=== PATIENT | female | born 1965 | race Caucasian/White ===

== ENCOUNTER → 2017-07-05 | Outpatient (CLI) | payer MEDICARE, BC ==
--- NOTE | 2017-07-05 10:20 | RAD ---
Exam performed:3 views left shoulder Indication:Left shoulder pain for 3 days, injury at the gym Date of service:07/05/17. Comparison:None available Findings : AP radiographs of the shoulder in internal and external rotation as well as a Y-view reveal the osseous structures to be intact and well aligned. The joint space is well-preserved. The articular margins are smooth. The visualized left lung is clear. Previous median sternotomy. Impression: No acute abnormality seen in the left shoulder.
== END | disposition home or self-care (01) ==
LOC: DXRADRC 10:05
PROVIDERS: ATTEND Physician Assistant Medical
DX: M25.512 Pain in left shoulder (principal); Z98.890 Other specified postprocedural states
CPT/HCPCS: 73030

== ENCOUNTER → 2018-09-19 | Outpatient (CLI) | payer MEDICARE, OTHER ==
--- NOTE | 2018-09-19 14:47 | CARD ---
MR#: [id number] Date of Study: 09/19/2018 Ordering Physician: FABIAN PATEL, Referring Physician: FABIAN PATEL, Tech: Mechelle Hays RDCS APPROVED REPORT EXAM: Two-dimensional and M-mode echocardiogram with Doppler and color Doppler. Other Information Quality : Good INDICATION Aortic Valve Disease Surgery/Intervention Status/Post Aortic Valve Replacement: Mechanical Type: Medtronic Date: 2010 2D DIMENSIONS RVDd2.7 (2.9-3.5cm)Left Atrium(2D)2.6 (1.6-4.0cm) IVSd1.3 (0.7-1.1cm)Aortic Root(2D)2.8 (2.0-3.7cm) LVDd3.8 (3.9-5.9cm)LVOT Diameter2.0 (1.8-2.4cm) PWd1.2 (0.7-1.1cm)LVDs2.2 (2.5-4.0cm) FS (%) 30.0 %SV45.2 ml LVEF(%)60.0 (>50%) Aortic Valve AoV Peak Ruperto.282.1cm/sAoV VTI48.5cm AO Peak GR.31.8mmHgLVOT Peak Ruperto.131.5cm/s LVOT VTI 21.16cmAO Mean GR.19mmHg CLAU (VMAX)1.52ur5JXB (VTI)1.40cm2 AI P 1/2 [id number] Mitral Valve MV E Hzsorcxx60.0cm/sMV DECEL CEUO337gk MV A Afvapwzg12.1cm/sE/A Ratio1.1 Tricuspid Valve TR P. Zlndjolr056qm/sRAP VLCJQQZD3lwWf TR Peak Gr.59sdPyLLBA07mzNt Pulmonary Vein S1 Pxurlarz63.2cm/sD2 Stfmanip04.2cm/s LEFT VENTRICLE The left ventricle is normal size. There is mild concentric left ventricular hypertrophy. The left ve ntricular systolic function is normal and the ejection fraction is within normal range. The Ejection Fraction is 55-60%. There is normal LV segmental wall motion. Septal motion consistent with postooper ative state. The left ventricular diastolic function and filling is normal for age. RIGHT VENTRICLE The right ventricle is normal size. The right ventricular systolic function is normal. ATRIA The left atrium size is normal. The right atrium size is normal. The interatrial septum is intact wit h no evidence for an atrial septal defect or patent foramen ovale as noted on 2-D or Doppler imaging. AORTIC VALVE The aortic valve is not well visualized. Doppler and Color Flow revealed mild aortic regurgitation. C alculated aortic valve area is 1.4 cm2 with maximum pressure gradient of 32 mmHg and mean pressure gr adient of 19 mmHg. There is a mechanical aortic valve prosthesis. The prosthetic aortic valve appears well seated. MITRAL VALVE The mitral valve is normal in structure and function. There is no evidence of mitral valve prolapse. There is no mitral valve stenosis. Doppler and Color Flow revealed no mitral valve regurgitation note d. TRICUSPID VALVE The tricuspid valve is normal in structure and function. Doppler and Color Flow revealed mild TR. RVS P 20 mm Hg. There is no tricuspid valve prolapse or vegetation. There is no tricuspid valve stenosis. PULMONIC VALVE Doppler and Color Flow revealed no pulmonic valvular regurgitation. There is no pulmonic valvular dena nosis. GREAT VESSELS The aortic root is normal in size. The ascending aorta is normal in size. The IVC was not visualized. PERICARDIAL EFFUSION There is no evidence of significant pericardial effusion. Critical Notification Critical Value: No <Conclusion> The left ventricular systolic function is normal and the ejection fraction is within normal range. Th e Ejection Fraction is 55-60%. There is normal LV segmental wall motion. Septal motion consistent with postooperative state. There is a mechanical aortic valve prosthesis. The prosthetic aortic valve appears well seated. Calculated aortic valve area is 1.4 cm2 with maximum pressure gradient of 32 mmHg and mean pressure g radient of 19 mmHg. Signed by : Fabian Patel, Electronically Approved : 09/19/2018 14:46:18
== END | disposition home or self-care (01) ==
LOC: ECHO 13:52
PROVIDERS: ATTEND Internal Medicine Cardiovascular Disease
DX: I35.8 Other nonrheumatic aortic valve disorders (principal); Z95.2 Presence of prosthetic heart valve
CPT/HCPCS: 93306

== ENCOUNTER → 2019-01-29 | Outpatient (CLI) | payer MEDICARE, OTHER ==
--- NOTE | 2019-01-29 10:23 | RAD ---
AP and Lateral Views of the Chest 01/29/2019 9:59 AM Indication: pneumonia Comparison: CT of the chest October 01, 2011. Findings: There is no focal consolidation or infiltrate identified. Prior median sternotomy and valve repair are noted. Heart size is normal. There is no evidence of pneumothorax or pleural effusion. No acute osseous abnormalities are identified. Impression: No evidence of acute cardiopulmonary process. Electronically signed by: Sj Little MD (01/29/2019 10:20 AM) [id number]
== END | disposition home or self-care (01) ==
LOC: PMG 09:45
PROVIDERS: ATTEND Physician Assistant Medical
DX: J18.9 Pneumonia, unspecified organism (principal)
CPT/HCPCS: 71046

== ENCOUNTER → 2019-02-16 | Outpatient (CLI) | payer MEDICARE, OTHER ==
--- NOTE | 2019-02-16 16:40 | RAD ---
Left RIBS, 2 views, 02/16/2019: HISTORY: Left rib pain No rib fracture is identified. There is no evidence of underlying pneumothorax, pleural fluid or infiltrate. A cardiac valvular prosthesis is in place. IMPRESSION: No acute left rib abnormality is detected. Electronically signed by: Osmany Morales MD (02/16/2019 4:37 PM) [facility]
== END | disposition home or self-care (01) ==
LOC: PMG 15:18
PROVIDERS: ATTEND Registered Nurse
DX: R07.81 Pleurodynia (principal); Z95.2 Presence of prosthetic heart valve
CPT/HCPCS: 71100

== ENCOUNTER → 2019-02-20 | Outpatient (CLI) | payer MEDICARE, OTHER ==
--- NOTE | 2019-02-20 16:01 | RAD ---
Examination: BREAST LEFT History: order stated left side chest wall near breast when i felt it in breast 4 7cm fn
so i changed it to breast
Comparison/Correlation: None Findings: Ultrasound imaging of the left breast was performed. Imaging was performed from the 4:00 to 5:00 region 7 cm from the nipple. There is no mass or cyst. No edema or other suspicious finding. Impression: No suspicious finding. If a palpable breast abnormality is a concern, then mammographic correlation would be recommended. Electronically signed by: Claudio Brooks MD (02/20/2019 3:58 PM) [facility]
== END | disposition home or self-care (01) ==
LOC: US 11:19
PROVIDERS: ATTEND Physician Assistant Medical
DX: R22.2 Localized swelling, mass and lump, trunk (principal)
CPT/HCPCS: 76641

== ENCOUNTER → 2019-03-02 | Outpatient (CLI) | payer MEDICARE, OTHER ==
--- NOTE | 2019-03-02 17:16 | RAD ---
DATE: 03/02/2019 EXAM: MAMMO RIC DIAG BILAT HISTORY: Left breast lump COMPARISON: 11/27/2015 This study was interpreted with the benefit of Computerized Aided Detection (CAD). Breast Density: SCATTERED The breast parenchyma shows scattered fibroglandular densities. Breast parenchyma level B. FINDINGS: 2-D and 3-D tomosynthesis imaging was performed in CC and MLO projections. No new or enlarging breast densities are seen. Minimal benign type calcifications are noted. No suspicious microcalcifications have developed. IMPRESSION: Stable mammograms without evidence of malignancy. If there is a high clinical suspicion of a chest wall abnormality, CT scanning may be useful for further evaluation. BI-RADS CATEGORY: 2 BENIGN FINDING(S) RECOMMENDED FOLLOW-UP: 12M 12 MONTH FOLLOW-UP PQRS compliance statement: Patient information was entered into a reminder system with a target due date for the next mammogram. Mammography is a sensitive method for finding small breast cancers, but it does not detect them all and is not a substitute for careful clinical examination. A negative mammogram does not negate a clinically suspicious finding and should not result in delay in biopsying a clinically suspicious abnormality. "Our facility is accredited by the [employer] Mammography Program."
== END | disposition home or self-care (01) ==
LOC: MAMMO 10:13
PROVIDERS: ATTEND Registered Nurse
DX: R22.2 Localized swelling, mass and lump, trunk (principal)
CPT/HCPCS: 77066; G0279; 77062

== ENCOUNTER → 2019-10-26 | Outpatient (CLI) | payer MEDICARE, OTHER ==
[~2019-10-26] MED LIST: IOHEXOL 350 MG/ML 100 ML VIAL. IV ONE
--- NOTE | 2019-10-26 10:53 | CARD ---
MR#: [id number] Date of Study: 10/26/2019 Ordering Physician: FABIAN PATEL, Referring Physician: FABIAN PATEL, Tech: Mechelle Hays RDCS APPROVED REPORT EXAM: Two-dimensional and M-mode echocardiogram with Doppler and color Doppler. Other Information Quality : Good Technically limited study due to aortic valve prosthesis. INDICATION Aortic Valve Disease Surgery/Intervention Status/Post Aortic Valve Replacement: Mechanical Type: Medtronic Date: 10/2011 2D DIMENSIONS RVDd2.3 (2.9-3.5cm)Left Atrium(2D)2.9 (1.6-4.0cm) IVSd1.0 (0.7-1.1cm)Aortic Root(2D)2.7 (2.0-3.7cm) LVDd4.1 (3.9-5.9cm)LVOT Diameter2.0 (1.8-2.4cm) PWd1.1 (0.7-1.1cm)LVDs2.8 (2.5-4.0cm) FS (%) 31.3 %SV44.2 ml LVEF(%)59.6 (>50%) Aortic Valve AoV Peak Ruperto.259.1cm/sAoV VTI50.8cm AO Peak GR.26.9mmHgLVOT Peak Ruperto.80.5cm/s LVOT VTI 17.20cmAO Mean GR.16mmHg CLAU (VMAX)0.49ar4NXU (VTI)1.08cm2 Mitral Valve MV E Slqcnrzq95.3cm/sMV DECEL KKTJ007mu MV A Mqeqomln95.8cm/sE/A Ratio1.1 Tricuspid Valve TR P. Zyvraxvf035bp/sRAP MMGJMBCZ6weRp TR Peak Gr.22ejKpTZAG48niXn Pulmonary Vein S1 Qiinqjts80.1cm/sD2 Gqndoknh15.8cm/s LEFT VENTRICLE The left ventricle is normal size. There is normal left ventricular wall thickness. The left ventricu lar systolic function is normal and the ejection fraction is within normal range. The Ejection Fracti on is 55-60%. Septal motion suggestive of prior sternotomy. Otherwise, there is normal LV segmental w all motion. The left ventricular diastolic function and filling is normal for age. RIGHT VENTRICLE The right ventricle is normal size. The right ventricular systolic function is normal. ATRIA The left atrium size is normal. The right atrium size is normal. The interatrial septum is intact wit h no evidence for an atrial septal defect or patent foramen ovale as noted on 2-D or Doppler imaging. AORTIC VALVE The aortic valve is not well visualized. Doppler and Color Flow revealed trace to mild aortic regurgi tation. Calculated aortic valve area is 1.1 cm2 with maximum pressure gradient of 27 mmHg and mean pr essure gradient of 16 mmHg. There is a central disk (Medtronic-Carpio type) mechanical aortic valve pro sthesis. MITRAL VALVE The mitral valve is calcified but opens well. There is no evidence of mitral valve prolapse. There is no mitral valve stenosis. Doppler and Color-flow revealed trace mitral regurgitation. TRICUSPID VALVE The tricuspid valve is normal in structure and function. Doppler and Color Flow revealed mild tricusp id regurgitation. The PA pressure was estimated at 27 mmHg. There is no tricuspid valve stenosis. PULMONIC VALVE The pulmonic valve is not well visualized. Doppler and Color Flow revealed trace to mild pulmonic tom vular regurgitation. There is no pulmonic valvular stenosis. GREAT VESSELS The aortic root is normal in size. The ascending aorta is normal in size. The IVC was not visualized. PERICARDIAL EFFUSION There is no evidence of significant pericardial effusion. Critical Notification Critical Value: No <Conclusion> The left ventricular systolic function is normal and the ejection fraction is within normal range. Th e Ejection Fraction is 55-60%. Septal motion suggestive of prior sternotomy. Otherwise, there is normal LV segmental wall motion. There is a mechanical aortic valve prosthesis. Calculated aortic valve area is 1.1 cm2 with maximum pressure gradient of 27 mmHg and mean pressure gradient of 16 mmHg. Signed by : Fabian Patel, Electronically Approved : 10/26/2019 10:52:33
--- NOTE | 2019-10-26 17:33 | RAD ---
EXAM: CT ANGIOGRAM CHEST WITH IV CONTRAST CLINICAL HISTORY: Aortic aneurysm. COMPARISON: None. TECHNIQUE: CT of the chest following the administration of intravenous contrast. Axial, coronal and sagittal reformatted images were generated. ---PQRS compliance statement - One or more of the following individualized dose reduction techniques were utilized for this study: 1. Automated exposure control 2. Adjustment of the mA and/or kV according to patient size 3. Use of iterative reconstruction technique--- FINDINGS: CT angiogram: Changes of aortic valve replacement are seen. Ascending aorta measures up to 3 cm at the level of the right pulmonary artery. The aortic arch measures 2.8 cm in diameter. The proximal descending aorta, just beyond the origin of the left subclavian artery measures 3.4 cm. The descending aorta at the left pulmonary artery measures 2.3 cm. At the diaphragmatic hiatus the aorta measures 2.3 cm. No evidence for aortic dissection. No mediastinal hematoma or evidence for rupture. CHEST: Heart is not enlarged. No pericardial effusion. No pleural effusion or pneumothorax. Small hiatal hernia. No mediastinal or hilar lymphadenopathy. No axillary lymphadenopathy. No pleural effusion or pneumothorax. No lobar consolidation. Minimal dependent opacities in lower lobes likely scarring/atelectasis. Visualized Upper abdomen: Heterogeneous appearance of the spleen likely from arterial phase of contrast. Cholecystectomy clips are seen. Bones: Degenerative changes of spine are seen. Sternotomy wires are noted. 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 Measurements as above. Electronically signed by: Glen Carrillo MD (10/26/2019 5:30 PM) [id number]
== END | disposition home or self-care (01) ==
LOC: ECHO 08:44
PROVIDERS: ATTEND Internal Medicine Cardiovascular Disease
DX: I08.8 Other rheumatic multiple valve diseases (principal); I71.9 Aortic aneurysm of unspecified site, without rupture; K44.9 Diaphragmatic hernia without obstruction or gangrene; Z90.49 Acquired absence of other specified parts of digestive tract; Z95.2 Presence of prosthetic heart valve
CPT/HCPCS: 71275; 93306; Q9967

== ENCOUNTER → 2020-06-30 | Outpatient (CLI) | payer MEDICARE, OTHER ==
--- NOTE | 2020-06-30 15:26 | RAD ---
EXAM: BILATERAL DIGITAL 3D SCREENING MAMMOGRAPHY. HISTORY: Routine mammographic screening. TECHNIQUE: Bilateral digital 3D and tomographic images were obtained in CC and MLO projections. Computer-aided detection was applied. COMPARISON: 11/27/2015. COMPOSITION: B. There are scattered areas of fibroglandular density. FINDINGS: There are no suspicious masses, microcalcifications or architectural distortion. The parenchymal pattern is stable. Scattered calcifications are benign. BI-RADS CATEGORY 2: Benign. RECOMMENDATION: 1. Routine screening mammography in one year. If mammography demonstrates dense breast tissue (heterogenously dense or extremely dense, category C or D), which could hide abnormalities, and if other risk factors for breast cancer have been identified, supplemental screening tests that may be suggested by the ordering physician may be of benefit. Dense breast tissue, in and of itself, is a relatively common condition. Therefore, this information is not provided to cause undue concern, but rather to raise awareness and to promote discussion with the referring physician regarding the presence of other risk factors, in addition to dense breast tissue. The results of this mammography examination is provided to the patient and referring physician. The patient should contact their referring physician if any questions or concerns exist regarding this report. PQRS compliance statement - Patient information was entered into a reminder system with a target due date for the next mammogram. "Our facility is accredited by the [employer] Mammography [employer]." Electronically signed by: Gabby Suazo MD (06/30/2020 3:22 PM) [id number]
== END | disposition home or self-care (01) ==
LOC: MAMMO 09:29
PROVIDERS: ATTEND Physician Assistant Medical
DX: Z12.31 Encounter for screening mammogram for malignant neoplasm of breast (principal); N64.89 Other specified disorders of breast
CPT/HCPCS: 77063; 77067

== ENCOUNTER → 2021-05-08 | Outpatient (CLI) | payer MEDICARE, OTHER ==
--- NOTE | 2021-05-08 13:45 | RAD ---
EXAM: XR CHEST 2V 05/08/2021 11:17 AM CLINICAL INDICATION: Cough, second hand smoke COMPARISON: None available. TECHNIQUE: PA and lateral views of the chest FINDINGS: There are changes of median sternotomy and a prosthetic heart valve. The heart is normal in size normal. Lungs are well-expanded and clear. No consolidation, pleural effusion, or pneumothora x. Pulmonary vascularity is normal. The thoracic skeleton is intact. IMPRESSION: No acute cardiopulmonary abnormality. Electronically signed by: Gia Cleveland MD (05/08/2021 1:43 PM) [id number]
== END ==
LOC: RAD 11:09
PROVIDERS: ATTEND Physician Assistant Medical
DX: R05 Cough (principal); Z95.2 Presence of prosthetic heart valve
CPT/HCPCS: 71046

== ENCOUNTER → 2021-07-03 | Outpatient (CLI) | payer MEDICARE, OTHER ==
--- NOTE | 2021-07-03 14:22 | RAD ---
History: Routine digital 3-D screening mammography PROCEDURE: [Routine 3-D CC and MLO views of both breasts are obtained.] The images were also evalua jaren with computer-aided detection and the CAD results were analyzed. Previous: Bilateral screening mammogram from 06/30/2020. FINDINGS: There are scattered fibroglandular densities (density level B).There are no suspicious masses, suspic ious microcalcifications or areas of architectural distortion. Stable occasional calcifications seen. IMPRESSION: Benign mammogram. Routine annual screening mammogram in one year advised. BI-RADS Category 2: Benign. A mammogram does not have 100% sensitivity and therefore a negative imaging study should not delay fu rther work up of a suspicious abnormality. "Our facility is accredited by the [employer] Mammography Program." Electronically signed by: Yi Figueroa MD (07/03/2021 2:19 PM) [id number]
== END ==
LOC: MAMMO 12:56
PROVIDERS: ATTEND Physician Assistant Medical
DX: Z12.31 Encounter for screening mammogram for malignant neoplasm of breast (principal)
CPT/HCPCS: 77063; 77067

== ENCOUNTER → 2022-02-22 | Outpatient (CLI) | payer MEDICARE, OTHER ==
--- NOTE | 2022-02-22 12:37 | RAD ---
XR KNEE 3 VIEWS_RT DATE: 02/22/2022 10:20 AM INDICATION: Pain, FALL DOWN STAIRS YESTERDAY / COMPARISON: None. FINDINGS: Bones: There is no evidence of acute fracture or dislocation. Joints: Mild tricompartmental degenerative changes. There is no joint effusion. Miscellaneous: None. IMPRESSION: No evidence of acute fracture. Electronically signed by: Ellis Zamarripa MD (02/22/2022 12:35 PM) [id number]
--- NOTE | 2022-02-22 15:48 | RAD ---
EXAM: XR RT TOE 2+ VIEWS 02/22/2022 10:20 AM CLINICAL INDICATION: Fall downstairs on Tuesday COMPARISON: None TECHNIQUE: 3 views of the right great toe FINDINGS: There is a minimally displaced oblique fracture of the first proximal phalanx. No definite intra-articular extension. There is severe hallux valgus and mild degenerative joint disease at the great toe MTP joint. Mild overlying soft tissue swelling. IMPRESSION: Minimally displaced fracture of the first proximal phalanx. Electronically signed by: Gia Cleveland MD (02/22/2022 3:45 PM) [id number]
== END ==
LOC: RAD 10:05
PROVIDERS: ATTEND Physician Assistant Medical
DX: S92.911A Unspecified fracture of right toe(s), initial encounter for closed fracture (principal); M79.89 Other specified soft tissue disorders; M20.11 Hallux valgus (acquired), right foot; M17.11 Unilateral primary osteoarthritis, right knee; M19.071 Primary osteoarthritis, right ankle and foot; W19.XXXA Unspecified fall, initial encounter; Y93.89 Activity, other specified; Y92.89 Other specified places as the place of occurrence of the external cause; Y99.8 Other external cause status
CPT/HCPCS: 73562; 73660